=== PATIENT | female | born 2000 | race Caucasian/White ===

== ENCOUNTER 2024-08-08 08:48 | Outpatient (CLI) | payer OTHER, BC, SELFPAY ==
--- NOTE | 2024-08-08 08:48 | ANES.PREANE2 ---
Pre-Anesthetic Assessment Preop Diagnosis: IUP Epidural Familial anesthetic complications: None Social No alcohol and No tobacco Exam alert, oriented x 3, clear to auscultation bilaterally and regular rate & rhythm Airway Mallampati: Class II Dentition: full Anesthetic Plan ASA status: 2 Anesthesia: Regional (specify below) Risk of > 500 ml blood loss (7ml/kg in children): Yes, adequate IV access and fluids planned Data Anesthesia Cardiac Studies: No Data to Display
--- OUTSIDE RECORDS SUMMARY | 2024-10-14 16:06 | XMS_ITS | Data Portability ---
Author Organization TOSHIA Murdock [facility], [facility], [facility] Address [address] [facility] [address] [place] [address] Assessment No assessment recorded. Plan of Treatment Reminders Order Date Submit Date Provider Last Modified By Organization Details Last Modified Time Details Appointments None recorded. Lab streptococc us group B, culture, unspecified specimen 2024 025 [employer] [facility], [address] [place] [address], [facility] [address] [place], [address], 09:30:13 Referral None recorded. Procedures None recorded. Surgeries None recorded. Imaging None recorded. Medication Orders norethindro ne (contracept wesley) 0.35 mg tablet 2024 025 [place] [facility], [address], [place], [address], 12:54:25 Patient TargetsNo targets recorded. Patient InstructionsNo instructions recorded. Reason for Referral None Reported. Results Created Date Observation Date Name Description Value Unit Range Abnormal Flag Note LastModifiedBy Organization Detail LastModifiedTime 07/24/1907/27/2024 STREP TOCOC CUS, GROUP B CULTU RE streptococcu s, group B culture SEE NOTE STREP TOCOC CUS, GROUP B CULTU RE Micro Numbe r: [id number] Test Statu s: Final Speci men Sourc e: Vagin al/an orect al Speci men Quali ty: Adequ ate Resul t: No group B Strep tococ cus isola jerrod Note per CDC guide lines optim al recov min is achie denise by swabb ing both the lower vagin a and rectu m (thro ugh the anal sphin cter) . Not Available [facility] [address] [place], [address], 07/27/2024 09:30:13 Result Notes None recorded. Problems Name Problem SNOMED Code Status Onset Date Resolution Date Notes Provider Name and Address Organization Details Recorded Time Normal in primigrav galva 117014580469 103 Active 2023 GAURANG martell [facility] 5 15:04:43 Normal in primigrav galva 555932954397 103 Completed 2023 GAURANG martell [facility] 5 15:04:43 care status 504350914 Active 2024 GAURANG CASTILLO [facility] 5 12:34:35 Contracep tion care managemen t Active 2024 GAURANG CASTILLO [facility] 5 12:34:38 Problem Notes None recorded. Procedures Surgical History Date Name Laterality Status Provider Name and Address Organization Details Recorded Time 02/20/20 24 Date of Last Pap Smear completed [facility] 09/30/2024 12:21:59 02/20/20 24 liquid based cervical cytology screening completed [facility] 09/30/2024 12:21:18 extraction of wisdom tooth completed BALWINDER CAMACHO [facility] 01/17/2024 09:23:32 Imaging Results None recorded. Procedure Notes None recorded. Medical Equipment None Reported. Allergies No known drug allergies Medications Name Sig Start Date Stop Date Status Note LastModified by Organization Details LastModified Time ibuprofen 800 mg tablet TAKE 1 TABLET BY MOUTH THREE TIMES DAILY active Not Available Not Available No t Available nifedipine ER 30 mg tablet,extend ed release Take 1 tablet every day by oral route. active Not Available Not Available No t Available norethindrone (contraceptiv e) 0.35 mg tablet Take 1 tablet every day by oral route. 2024 active Not Available Not Available Not Avai lable Z Advanced Formula active Not Available Not [...] Details Last Updated DateTime 5 180.34 cm 37.4 kg/m2 891564. 618174 g 97 % 97 % 120 /min 20 /min 97.8 [degF] 130 mm[Hg] 76 mm[Hg] BALWINDER AGUILAR [facility] 5 15:08:14 Date Recorded Body height Body mass index (BMI) Body weight Respiratory rate Oxygen saturation Oxygen saturation in Arterial blood by Pulse oximetry Heart rate Body temperature Systolic blood pressure Diastolic blood pressure Provider Name and Address Organization Details Last Updated DateTime 5 180.34 cm 37.8 kg/m2 882215. 93 g 18 /min 98 % 98 % 120 /min 98.1 [degF] 128 mm[Hg] 68 mm[Hg] GAURANG [facility] 5 11:17:23 Date Recorded Body height Body mass index (BMI) Body weight Oxygen saturation Oxygen saturation in Arterial blood by Pulse oximetry Heart rate Respiratory rate Body temperature Systolic blood pressure Diastolic blood pressure Provider Name and Address Organization Details Last Updated DateTime 5 180.34 cm 37.8 kg/m2 456872. 63 g 98 % 98 % 108 /min 18 /min 99 [degF] 136 mm[Hg] 88 mm[Hg] [facility] 5 15:16:20 Date Recorded Body height Body mass index (BMI) Body weight Oxygen saturation Oxygen saturation in Arterial blood by Pulse oximetry Heart rate Respiratory rate Body temperature Systolic blood pressure Diastolic blood pressure Provider Name and Address Organization Details Last Updated DateTime 5 180.34 cm 38.1 kg/m2 731465. 72 g 98 % 98 % 104 /min 18 /min 99.2 [degF] 122 mm[Hg] 76 mm[Hg] GAURANG CASTILLO [facility] 5 15:32:58 Date Recorded Body height Body mass index (BMI) Body weight Respiratory rate Heart rate Oxygen saturation Oxygen saturation in Arterial blood by Pulse oximetry Body temperature Systolic blood pressure Diastolic blood pressure Provider Name and Address Organization Details Last Updated DateTime 5 180.34 cm 34.7 kg/m2 375924. 71 g 18 /min 93 /min 97 % 97 % 98.9 [degF] 110 mm[Hg] 62 mm[Hg] GAURANG CASTILLO [facility] 5 12:33:10 Social History Question Answer Notes LastModified by [employer] Details LastModified Time Tobacco Smoking Status Never Smoker BALWINDER martell [facility] 01/17/2024 09:23:11 What Is Your Level Of Alcohol Consumption? None Information not available 01/17/2024 Are You Blind Or Do You Have Difficulty Seeing? No Information not available 09/30/2024 Are You A Caregiver? No Information not available 08/14/2024 Are You Deaf Or Do You Have Serious Difficulty Hearing? No Information not available 09/30/2024 Do You Or Have You Ever Used [...] you have difficulty walking or climbing stairs? No Information not available 09/30/2024 Do you have transportation difficulties? No Information not available 08/14/2024 Are you able to walk? YESWOREST Information not available 08/14/2024 Do you have difficulty doing errands alone? No Information not available 09/30/2024 Are you able to care for yourself? Yes Information not available 01/17/2024 Do you have difficulty dressing or bathing? No Information not available 09/30/2024 Mental Status Question Answer Note LastModified by Organization D etails LastModified Time Do you have difficulty concentrating, remembering or making decisions? No Information no t available 09/30/2024 Family History Relationship Description Onset Age of this Age Resolved Age Notes LastModified by Organization Details LastModified Time Mother Essential hypertension [email or web address] Not available 01/17/2024 09:22:37 Father Diabetes mellitus [email or web address] Not available 09:22:46 Medical History No medical history recorded. Gynecological History Statement/Question Response Abnormal Pap N Date of Last Pap Smear 02/20/2024 Obstetrics History GPAL:G 1 P 1 0 0 1 Type Value Full Term 1 Living 1 Total 1 Past Encounters Encounter ID Performer Location Encounter Start Date Encounter Closed Date Diagnosis/Indication Diagnosis SNOMED-CT Code Diagnosis ICD10 Code Diagnosis Note [id number] Giancarlo Larios MD [facility] ([facility]) [address] [place] [address] 5 01/17/2024 08:58:02 01/17/2024 10:21:08 Normal in primigravida 5203701075 15215 Z34.01 Gestation period, 10 weeks 80582288 Z3A.10 Irregular periods 038743 07 N92.6 [id number] Giancarlo Larios MD [facility] ([facility]) [address] [place] [address] 01/17/2024 12:36:12 01/18/2024 13:30:15 [id number] Giancarlo Larios MD [facility] ([facility]) [address] [place] [id number] 5 02/20/2024 09:48:01 02/20/2024 11:08:54 Normal in primigravida 4261641687 21483 Vaginal discharge 626415 006 N89.8 [id number] Giancarlo Larios MD [facility] ([facility]) [address] [place] [address] 5 03/20/2024 15:24:06 03/20/2024 16:10:46 Normal in primigravida 7978213565 40475 Z34.01 Gestation period, 18 weeks 16603379 Z3A.18 [id number] Giancarlo Larios MD [facility] ([facility]) [address] [place] [address]7968-245 5 04/03/2024 13:55:20 04/04/2024 09:53:06 [id number] Giancarlo Larios MD [facility] ([facility]) [address] [place] [id number] 5 04/17/2024 14:51:20 04/17/2024 16:10:49 Normal in primigravida 2179141330 71785 Z34.01 Gestation period, 22 weeks 90390832 Z3A.22 [id number] Medhat Brown MD [facility] ([facility]) [address] [place] [address] 5 05/02/2024 10:49:04 05/02/2024 13:30:15 Cough 13477542 R05.9 stay well hydrated and restif new fever breathing trouble any pelvic sx's. [id number] Giancarlo Larios MD [facility] ([facility]) [address] [place] [address] [id number] 5 05/15/2024 09:00:05 05/15/2024 09:28:42 Normal in primigravida 4444847199 30355 Z34.02 Gestation period, 26 weeks 54747837 Z3A.26 [id number] Giancarlo Larios MD [facility] ([facility]) [address] [place] [id number] 5 06/13/2024 13:42:47 06/13/2024 16:37:51 Normal in primigravida 1343602267 41441 Z34.02 Gestation period, 30 weeks 73597139 Z3A.30 [id number] Giancarlo Larios MD [facility] ([facility]) [address] [place] [id number] 5 06/19/2024 13:53:52 06/20/2024 14:18:36 [id number] Giancarlo Larios MD [facility] ([facility]) [address] [place] [id number] 5 06/26/2024 14:55:53 06/26/2024 16:49:13 Normal in primigravida 6836153681 38599 Z34.02 Gestation period, 32 weeks 6052810 Z3A.32 [id number] Giancarlo Larios MD [facility] ([facility]) [address] [place] [address] 5 07/10/2024 14:49:35 07/10/2024 15:46:57 Normal in primigravida 0572599634 55996 Z34.02 Gestation period, 34 weeks 95427726 Z3A.34 [id number] Giancarlo Larios MD [facility] ([facility]) [address] [place] [id number] 5 07/24/2024 14:52:18 07/24/2024 16:58:25 Normal in primigravida 0832693535 13537 Z34.03 Gestation period, 36 weeks 03306243 Z3A.36 [id number] Giancarlo Larios MD [facility] ([facility]) [address] [place] [id number] 5 07/30/2024 11:02:38 07/30/2024 11:40:13 Normal in primigravida 6852801516 20142 Z34.03 Gestation period, 37 weeks 72306993 Z3A.37 [id number] Giancarlo Larios MD [facility] ([facility]) [address] [place] [address] [id number] 5 08/07/2024 14:51:46 08/07/2024 16:23:23 Normal in primigravida 9558990947 42361 Z34.03 Gestation period, 38 weeks 36133205 Z3A.38 [id number] Giancarlo Larios MD [facility] ([facility]) [address] [place] [address] 08/14/2024 14:53:30 08/14/2024 16:33:46 Normal in primigravida 1331759952 42692 Z34.03 Gestation period, 39 weeks 82310501 Z3A.39 [id number] Giancarlo Larios MD [facility] ([facility]) [address] [place] [address] 09/30/2024 11:55:19 09/30/2024 15:05:21 care status 665033471 Z39.2 Contracept ion care management 204149472 Z30.8 Health Concerns Section Related Observation LastModified by Organization Detai ls LastModified Time None Recorded Concern Status LastModified by Organization Details LastModified Time None Recorded Advance Directives Directive None Recorded Payers Encounter Date Sequence Insurance Name Policy Number Policy Arce Covered Member ID Arce Member ID Guarantor Name 07/24/2024 1 MEDICA - IFB (PPO) [id number] [facility] [id number] [facility] 07/24/2024 1 [place] [id number] Binh Salomon [id number] [facility] 07/30/2024 1 MEDICA - IFB (PPO) [id number] [facility] [id number] [facility] 07/30/2024 1 [place] [id number] Binh Salomon [id number] [facility] 08/07/2024 1 [employer] - [place] (PPO) [id number] Abner Reese [id number] [facility] 08/07/2024 1 [place] [id number] Binh Salomon [id number] [facility] 08/14/2024 1 [employer] - [place] (PPO) [id number] Abner Klein [id number] Debra Klein 08/14/2024 1 [place] [id number] Binh Latif [id number] Debra Klein 09/30/2024 1 [employer] - [place] (PPO) [id number] Abner Klein [id number] Debra Klein Notes Date Note Type Note Provider Name and Address Organization Details Recorded Time 07/24/2024 text/html ob routineRep orted bypatient.Associated Symptoms:no abdominal pain; no cramping; no contractions; normal movement; no bleeding; no vaginal discharge; no vaginal/vulvar itching or irritation; no dysuria; no frequency; no urgency; no hematuria; no fever; no nausea; no emesis; no diarrhea/loose stool; no visual changes; no breathlessness;consti pation;edema(mild hands and feet);headache;dizzin ess(occasional)Notes: heartburn, back pain,Pt denies any alcohol, drug or tobacco use. Giancarlo Larios MD [address] [place] [address], [phone], [facility] 08/27/2024 09:39:46 07/30/2024 text/html ob routineRep orted bypatient.Associated Symptoms:no abdominal pain; no cramping; no contractions; normal movement; no bleeding; no vaginal discharge; no vaginal/vulvar itching or irritation; no dysuria; no frequency; no urgency; no hematuria; no fever; no nausea; no emesis; no diarrhea/loose stool; no visual changes; no dizziness; no breathlessness;consti pation;edema(mild hands and feet);headacheNotes:b ack pain, pelvic pressurePt denies any alcohol, drug or tobacco use. Giancarlo Larios MD [address] [place] [address], [phone], [facility] 07/30/2024 11:35:20 08/07/2024 text/html ob routineRep orted bypatient.Associated Symptoms:no abdominal pain; no cramping; no contractions; normal movement; no bleeding; no vaginal/vulvar itching or irritation; no dysuria; no frequency; no urgency; no hematuria; no fever; no emesis; no constipation; no diarrhea/loose stool; no visual changes; no dizziness;vaginal discharge;nausea;patricia a(mild hands and feet);headache;breath lessnessNotes:back pain, pelvic painPt denies any alcohol, drug or tobacco use. Pt stated that for the last week she has been having itching on her hands and feet. She stated that it has been getting progressively worse and keeps her awake at night Giancarlo Larios MD [address] [place] [address], [phone], [facility], [place] 08/07/2024 15:44:45 08/14/2024 text/html jr ob routineRep orted bypatient.Associated [...] and feet, not worsening Giancarlo Larios MD [address] [place] [address], [phone], [facility] 08/14/2024 16:03:48 09/30/2024 text/html VisitReported bypatient.Onset/Timin g:date of delivery: (08/16/24) Quality: Context:no complications; feeding choice: breast; good support from partner/family; resumed sexual activity no; resumed menstrual bleeding no Associated Symptoms:no abnormal bleeding; no vaginal discharge; no pelvic pain; laceration well healed; no dysuria; no fever; no problems Contraception Plan:would like to discuss pt would like to discuss contraception Giancarlo Larios MD [address] [place] [address], [phone], [facility] 09/30/2024 12:59:24 OBGyn Episode Ob Episode Information Episode Created Date Number of Fetuses Patient Bloodtype Patient rh Status Prepregnancy Weight lbs Domestic Partner Domestic Partner Phone Father Name Vehicle Refinisher Status 01/17/20 24 1 O Positive Abner CLOSED Fetus Data First Name Last Name Admitted to NICU Weight (g) Sex Living Outcome Pediatric Complications Fetus ID Race Codes Race Delivery Type Rabia false 3883.88 15 F true Full Term none [id number] VAGINAL Problems Problem Notes Problem Name Start Date End Date Resolution Snomed Code Not e Normal in primigravida 02/19/2024 [id number] Mau Calculation Initial Mau Date Initial Exam [...] Type Weight in lbs Pre/Post Dialysis Refused 238.754356775584 BP Diastolic BP Location Tested BP Systolic [...] Type Weight in lbs Pre/Post Dialysis Refused 238.95905700246 BP Diastolic BP Location Tested BP Systolic [...] Type Weight in lbs Pre/Post Dialysis Refused 243.429106339960 BP Diastolic BP Location Tested BP Systolic [...] Type Weight in lbs Pre/Post Dialysis Refused 249.912128123281 BP Diastolic BP Location Tested BP Systolic BP Type 72 122 Fetus Heart Rate Present A 144 Present Fetus Movement A Yes Comments constipation, headache, shor tness of breath, heartburn Flowsheet Date 05/02/2024 Raya Score Blood Edema Fundus Height Fundus Units Glucose Ketones Leukocytes Nitrite Labor Signs Protein Cervic Dilation Cervic Effacement Cervic Station Type Weight in lbs Pre/Post Dialysis Refused Weight 250.611121107928 BP Diastolic BP Location Tested BP Systolic BP Type 70 115 Fetus Heart Rate Present Fetus Movement Comments Flowsheet Date 05/15/2024 Raya Score Blood Edema Fundus Height Fundus Units Glucose Ketones Leukocytes Nitrite Labor Signs Protein Cervic Dilation Cervic Effacement Cervic Station none none Negative neg Type Weight in lbs Pre/Post Dialysis Refused 253.263693732905 BP Diastolic BP Location Tested BP Systolic [...] Type Weight in lbs Pre/Post Dialysis Refused 259.068336713494 BP Diastolic BP Location Tested BP Systolic [...] Type Weight in lbs Pre/Post Dialysis Refused 263.627755016506 BP Diastolic BP Location Tested BP Systolic [...] Type Weight in lbs Pre/Post Dialysis Refused 267.605324920985 BP Diastolic BP Location Tested BP Systolic BP Type 70 L arm 126 Fetus Heart Rate Present A 148 Present Fetus Movement A Yes Comments nasuea, swelling feet/hands, low back pain, dizziness occas. Flowsheet Date 07/24/2024 Raya Score Blood Edema Fundus Height Fundus Units Glucose Ketones Leukocytes Nitrite Labor Signs Protein Cervic Dilation Cervic Effacement Cervic Station 37 cm 2+ Type Weight in lbs Pre/Post Dialysis Refused 268.91902242787 BP Diastolic BP Location Tested BP Systolic [...] Weight in lbs Pre/Post Dialysis Refused Weight 271.095404658420 BP Diastolic BP Location Tested BP Systolic [...] Weight in lbs Pre/Post Dialysis Refused Weight 271.342216524303 BP Diastolic BP Location Tested BP Systolic [...] Weight in lbs Pre/Post Dialysis Refused Weight 273.51605319018 BP Diastolic BP Location Tested BP Systolic BP Type 76 L arm 122 Fetus Heart Rate Present A 160 Present Fetus Movement A Yes Comments vaginal pressure, pelvic pre ssure, cramps, nausea, headaches, swelling hands and feet, itching hands and feet Flowsheet Date 09/30/2024 Raya Score Blood Edema Fundus Height Fundus Units Glucose Ketones Leukocytes Nitrite Labor Signs Protein Cervic Dilation Cervic Effacement Cervic Station Type Weight in lbs Pre/Post Dialysis Refused Weight 248.944321735276 BP Diastolic BP Location Tested BP Systolic BP Type 62 L arm 110 Fetus Heart Rate Present Fetus Movement Comments Menstrual History Last Menstrual Date Menses Monthly On Bcp Conception Prior Menses Frequency Hcg Plus Date Menarche Onset Age 0511/07/2023 Genetic Screening And Infection History Question Response Note Patient's Age Will Be 35 Years Or Older At Estim ated Date of Delivery false Thalassemia (Fijian, Kittitian, Mediterranean, Or Background): MCV < 80 false Neural Tube Defect (Meningomyelocele, Spina Bifi da, Or Anencephaly) false Congenital Heart Defect false Down Syndrome false Charlie-Sachs (eg, Pentecostal, Cajun, Khmer-[place]) f alse Bk Disease false Sickle Cell Disease Or Trait () false Hemophilia Or Other Blood Disorders false Muscular Dystrophy false Cystic Fibrosis false Carver's Chorea false Intellectual Disability/Autism false If Yes, [...] Post Complications Tubal Sterilization Discharge Date Comments 5 Sponta neous Regional-Ep idural 39.6 false Giancarlo Larios MD None false Discharge Information Feeding Method Contraceptive Method Maternal HG B and HCT Levels Breast
== END 2024-08-08 08:49 | disposition home or self-care (01) ==
LOC: OBGYN 10-14 19:31 → OPOB 10-15 16:40
PROVIDERS: Visit Provider Family Medicine
DX: Z01.818 Encounter for other preprocedural examination (principal)

== ENCOUNTER 2024-08-16 08:24 | Inpatient (IN) | payer OTHER, BC, SELFPAY ==
[2024-08-16] VITALS (75 sets, daily range): BP systolic 115–161; BP diastolic 60–94; PULSE 72–153; RESP 16–18; TEMP 36.7; O2SAT 97–99; BMI 38.2
[2024-08-16 05:59] LABS: Basophils # 0.1 10^3/uL (0.0-0.1); Basophils % 0.3 %; Eosinophils # 0.1 10^3/uL (0.0-0.8); Eosinophils % 0.3 %; Hematocrit 39.2 % (36-47); Lymphocytes # 1.9 10^3/uL (0.8-4.8); Lymphocytes % 11.2 %; Mean Corpuscular HGB Conc 32.1 g/dL (30-55); Mean Corpuscular Hemoglobin 26.1 pg (27-33); Mean Corpuscular Volume 81.3 fl (85-98); Mean Platelet Volume 11.3 fL (7.4-10.4); Monocytes # 0.6 10^3/uL (0.2-0.9); Monocytes % 3.7 %; Neutrophils # 13.97 10^3/uL (1.8-7.7); Nucleated Red Blood Cells % 0 %; Platelet Count 258 10^3/cmm (157-399); Red Blood Count 4.82 10^6/uL (3.85-5.65); Red Cell Distribution Width 14.3 % (12.1-15.1); White Blood Count 16.64 10^3/uL (3.29-11.43)
[2024-08-16] MEDS: fentaNYL 50 mcg/mL INJ 2mL IVP (06:44)
[2024-08-16] MEDS: lactated ringers 1,000 ML 999 ML IV (08:00)
--- NOTE | 2024-08-16 08:20 | PM.OPHPUD ---
Labor & Delivery H&P Update Date of Procedure: August 16, 2024 Date H&P Performed: 08/14/24 Changes to previous documentation: The patient is now having consistent contractions and making cervical change. Admission Diagnosis: 24-year-old 1 at 39 weeks and 6 days estimated gestational age Planned procedure: Vaginal delivery Other information: The patient is an otherwise healthy 24-year-old 1 female presenting to the hospital in active labor. She had been having contractions throughout most the night. When she arrived to the hospital she was found to be 2 cm dilated, when she was checked 2 hours later she was found to have effaced more and was having progressively more painful contractions. Her has been unremarkable. Her blood type is O+. Her antibody screen is negative. She is rubella immune. She passed her 3 glucose screen. She is GBS negative. The remainder of her infectious disease profile is within normal limits. Related Problem List Diagnoses (1) 39 weeks gestation of : A&P Assessment and plan (1) 39 weeks gestation of : I anticipate routine labor and delivery. Status: Acute PDMP PDMP Reviewed: Not Reviewed
--- NOTE | 2024-08-16 08:23 | P.ANES_ITS ---
Anesthesia Procedures Procedure/Date: 08/16/24
--- NOTE | 2024-08-16 08:23 | ANES.PROC ---
Anesthesia Procedures Procedure/Date: 08/16/24
--- OUTSIDE RECORDS SUMMARY | 2024-08-16 08:38 | XMS_ITS | Continuity of Care Document ---
Author Organization [facility] Meg, LHannah, [facility] ([facility]) Address [address] [place] [address] Assessment No assessment recorded. Plan of Treatment Reminders Order Date Submit Date Provider Last Modified By Organization Details Last Modified Time Details Appointments RETURN OB 2024 02:00P M Giancarlo Larios MD Not available Not available Not available Lab None recorded . Referral None recorded . Procedures None recorded . Surgeries None recorded . Imaging None recorded . Medication Orders None recorded . Patient TargetsNo targets recorded. Patient InstructionsNo instructions recorded. Reason for Referral None Reported. Results Created Date Observation Date Name Description Value Unit Range Abnormal Flag Note LastModifiedBy Organization Detail LastModifiedTime 04/05/20 24 04/03/2024 US, obste tric, 2nd trime ster No observ ation record ed. [email or web address] [facility] [address] [place], [address], 04/09/2024 19:50:52 Result Notes None recorded. Problems Name Problem SNOMED Code Status Onset Date Resolution Date Notes Provider Name and Address Organization Details Recorded Time Normal in primigravid a 0749699894917 03 Active 2023 [facility] Normal in primigravid a 0094117359750 03 Active 2023 [facility]43 Problem Notes None recorded. Procedures Surgical History Date Name Laterality Status Provider Name and Address Organization Details Recorded Time 02/23/20 24 Date of Last Pap Smear completed [facility] 02/26/2024 11:50:55 extraction of wisdom tooth [facility] 01/17/2024 09:23:32 Imaging Results None recorded. Procedure Notes None recorded. Medical Equipment None Reported. Allergies No known drug allergies Medications Name Sig Start Date Stop Date Status Note LastModified by Organization Details LastModified Time nifedipine ER 30 mg tablet,exten ded release Take 1 tablet every day by oral route. active Not Available Not Available No t Available Z Advanced Formula active Not Available Not Available Not Available nifedipine 01/16 completed Not Available Not Available Not Available Vitals Date Recorded Body height Body mass index (BMI) Body weight Oxygen saturation Oxygen saturation in Arterial blood by Pulse oximetry Heart rate Respiratory rate Body temperature Systolic blood pressure Diastolic blood pressure Provider Name and Address Organization Details Last Updated DateTime 180.34 cm 38.1 kg/m2 418066. 72 g 98 % 98 % 104 /min 18 /min 99.2 [degF] 122 mm[Hg] 76 mm[Hg] [facility] 15:32:58 Social History Question Answer Notes LastModified by Organizat ion Details LastModified Time Tobacco Smoking Status Never [facility] 01/17/2024 09:23:11 What Is Your Level Of Alcohol Consumption? None Information not available 01/17/2024 Are You Blind Or Do You Have Difficulty Seeing? Yes Information not available 08/14/2024 Are You A Caregiver? No Information not available 08/14/2024 Are You Deaf Or Do You Have Serious Difficulty Hearing? Yes Information not available 08/14/2024 Do You Or Have You Ever Used Any Nicotine-free Cigarettes, Vape, Or Chewing Tobacco? No Information not available 08/14/2024 What Is Your Relationship Status? Information not available 01/17/2024 Are You Sexually Active? Yes Information not available 01/17/2024 Do You Use Any Illicit Or Recreational Drugs? No Information not available 01/17/2024 Have You Recently Traveled Abroad? No Information not available 08/14/2024 Do You Or Have You Ever Used Any Other Forms Of Tobacco Or Nicotine? No Information not available 08/07/2024 Sex: Unknown Functional Status Question Answer Note LastModified by Organizat ion Details LastModified Time Do you have difficulty walking or climbing stairs? Yes Information not available 08/14/2024 Do you have transportation difficulties? No Information not available 08/14/2024 Are you able to walk? YESWOREST Information not available 08/14/2024 Do you have difficulty doing errands alone? Yes Information not available 08/14/2024 Are you able to care for yourself? Yes Information not available 01/17/2024 Do you have difficulty dressing or bathing? Yes Information not available 08/14/2024 Mental Status Question Answer Note LastModified by Organization D etails LastModified Time Do you have difficulty concentrating, remembering or making decisions? Yes Information no t available 08/14/2024 Family History Relationship Description Onset Age of this Age Resolved Age Notes LastModified by Organization Details LastModified Time Mother Essential hypertension [email or web address] Not available 01/17/2024 09:22:37 Father Diabetes mellitus [email or web address] Not available 09:22:46 Medical History No medical history recorded. Gynecological History Statement/Question Response Abnormal Pap N Date of Last Pap Smear 02/23/2024 Obstetrics History GPAL:G 1 P 0 0 0 0 Past Encounters Encounter ID Performer Location Encounter Start Date Encounter Closed Date Diagnosis/Indication Diagnosis SNOMED-CT Code Diagnosis ICD10 Code Diagnosis Note [id number] Alhaji Donovan [facility] ([facility]) [address] [place] [phone] 07/24/2024 14:52:18 07/24/2024 16:58:25 Normal in primigravida 0368664528 45821 Z34.03 Gestation period, 36 weeks 55538471 Z3A.36 [id number] Giancarlo Larios MD [facility] ([facility]) [address] [place] [phone] 07/30/2024 11:02:38 07/30/2024 11:40:13 Normal in primigravida 9030407522 93205 Z34.03 Gestation period, 37 weeks 86293348 Z3A.37 [id number] Giancarlo Larios MD [facility] ([facility]) [address] [place] [address] [phone] 08/07/2024 14:51:46 08/07/2024 16:23:23 Normal in primigravida 0248961773 71752 Z34.03 Gestation period, 38 weeks 22608345 Z3A.38 [id number] Giancarlo Larios MD [facility] ([facility]) [address] [place] [phone] 5 08/14/2024 14:53:30 08/14/2024 16:33:46 Normal in primigravida 7795029030 98819 Z34.03 Gestation period, 39 weeks 30763346 Z3A.39 Health Concerns Section Related Observation LastModified by Organization Detai ls LastModified Time None Recorded Concern Status LastModified by Organization Details LastModified Time None Recorded Payers Encounter Date Sequence Insurance Name Policy Number Policy Arce Covered Member ID Arce Member ID Guarantor Name 08/14/2024 2 [employer] - [employer] ([place]) [id number] Abner Klein [id number] Debra Klein 08/14/2024 1 [id number] [id number] Binh Latif [id number] Debra Klein Notes Date Note Type Note Provider Name and Address Organization Details Recorded Time 08/14/2024 text/html jr ob routineRep orted bypatient.Associated Symptoms:no abdominal pain; no contractions; normal movement; no bleeding; no vaginal/vulvar itching or irritation; no dysuria; no frequency; no urgency; no hematuria; no fever; no emesis; no constipation; no diarrhea/loose stool; no visual changes; no dizziness;cramping;va ginal discharge;nausea;patricia a(mild hands and feet);headache;breath lessness(occasional)N otes:back pain, pelvic pain, vaginal pressurePt denies any alcohol, drug or tobacco use. itching hands and feet, not worsening Giancarlo Larios MD [address] [place] [address], [phone], [facility] 08/14/2024 16:03:48 OBGyn Episode Ob Episode Information Episode Created Date Number of Fetuses Patient Bloodtype Patient rh Status Prepregnancy Weight lbs Domestic Partner Domestic Partner Phone Father Name Assistant Manager Trainee Status 01/17/20 24 1 O Positive Abner OPEN Fetus Data First Name Last Name Admitted to NICU Weight (g) Sex Living Outcome Pediatric Complications Fetus ID Race Codes Race Delivery Type [id number] Problems Problem Notes Problem Name Start Date End Date Resolution Snomed Code Not e Normal in primigravida 02/19/2024 [id number] Mau Calculation Initial Mau Date Initial Exam Date Initial Exam Provider Initial Ultrasound Date Last Menstrual Period Date Ultra Sound Weeks Gestation 08/17/2024 01/17/2024 01/17/2024 11/07/2023 9 Eighteen To Twenty Week Mau Update Ultra Sound Date Fundal Height At Umbil Quickening Date Ultra Sound Latest Weeks Gestation Final Mau Confirmed By Final Mau Confirmed Date Final Mau Date Ultra Sound Latest Days Gestation 0 0 Pre- Flowsheet Flowsheet Date 01/17/2024 Raya Score Blood Edema Fundus Height Fundus Units Glucose Ketones Leukocytes Nitrite Labor Signs Protein Cervic Dilation Cervic Effacement Cervic Station Type Weight in lbs Pre/Post Dialysis Refused 238.024193486126 BP Diastolic BP Location Tested BP Systolic BP Type 74 120 sitting Fetus Heart Rate Present A 168 Present Fetus Movement Comments OBI, nausea,vomiting, interm ittent cramping Flowsheet Date 01/17/2024 Raya Score Blood Edema Fundus Height Fundus Units Glucose Ketones Leukocytes Nitrite Labor Signs Protein Cervic Dilation Cervic Effacement Cervic Station Type Weight in lbs Pre/Post Dialysis Refused BP Diastolic BP Location Tested BP Systolic BP Type Fetus Heart Rate Present Fetus Movement Comments Flowsheet Date 01/19/2024 Raya Score Blood Edema Fundus Height Fundus Units Glucose Ketones Leukocytes Nitrite Labor Signs Protein Cervic Dilation Cervic Effacement Cervic Station Type Weight in lbs Pre/Post Dialysis Refused BP Diastolic BP Location Tested BP Systolic BP Type Fetus Heart Rate Present Fetus Movement Comments u/s on 01/17/24, MAU 08/18/23, E GA 9.4, FHR 167 Flowsheet Date 02/20/2024 Raya Score Blood Edema Fundus Height Fundus Units Glucose Ketones Leukocytes Nitrite Labor Signs Protein Cervic Dilation Cervic Effacement Cervic Station Type Weight in lbs Pre/Post Dialysis Refused 238.59518747100 BP Diastolic BP Location Tested BP Systolic BP Type 74 116 sitting Fetus Heart Rate Present A 152 Present Fetus Movement A No Comments NOB- headache, cough, runny nose, vaginal discharge Flowsheet Date 03/20/2024 Raya Score Blood Edema Fundus Height Fundus Units Glucose Ketones Leukocytes Nitrite Labor Signs Protein Cervic Dilation Cervic Effacement Cervic Station none trace neg Type Weight in lbs Pre/Post Dialysis Refused 243.901813135106 BP Diastolic BP Location Tested BP Systolic BP Type 70 122 Fetus Heart Rate Present A 148 Present Fetus Movement A No Comments heartburn , low back pain Flowsheet Date 04/03/2024 Raya Score Blood Edema Fundus Height Fundus Units Glucose Ketones Leukocytes Nitrite Labor Signs Protein Cervic Dilation Cervic Effacement Cervic Station Type Weight in lbs Pre/Post Dialysis Refused BP Diastolic BP Location Tested BP Systolic BP Type Fetus Heart Rate Present Fetus Movement Comments Flowsheet Date 04/09/2024 Raya Score Blood Edema Fundus Height Fundus Units Glucose Ketones Leukocytes Nitrite Labor Signs Protein Cervic Dilation Cervic Effacement Cervic Station Type Weight in lbs Pre/Post Dialysis Refused BP Diastolic BP Location Tested BP Systolic BP Type Fetus Heart Rate Present Fetus Movement Comments U/S of 04/03/24 EDC-08/13/24, EGA-21.1, FHT-145, breech presentation, placenta unremarkable, posterior, AFV-normal, negative for visible anatomic deformity, ovaries are not visible due to positional factors Flowsheet Date 04/17/2024 Raya Score Blood Edema Fundus Height Fundus Units Glucose Ketones Leukocytes Nitrite Labor Signs Protein Cervic Dilation Cervic Effacement Cervic Station 23 cm none none Negative neg Type Weight in lbs Pre/Post Dialysis Refused 249.477920320393 BP Diastolic BP Location Tested BP Systolic BP Type 72 122 Fetus Heart Rate Present A 144 Present Fetus Movement A Yes Comments constipation, headache, shor tness of breath, heartburn Flowsheet Date 05/02/2024 Raya Score Blood Edema Fundus Height Fundus Units Glucose Ketones Leukocytes Nitrite Labor Signs Protein Cervic Dilation Cervic Effacement Cervic Station Type Weight in lbs Pre/Post Dialysis Refused Weight 250.643680247776 BP Diastolic BP Location Tested BP Systolic BP Type 70 115 Fetus Heart Rate Present Fetus Movement Comments Flowsheet Date 05/15/2024 Raya Score Blood Edema Fundus Height Fundus Units Glucose Ketones Leukocytes Nitrite Labor Signs Protein Cervic Dilation Cervic Effacement Cervic Station none none Negative neg Type Weight in lbs Pre/Post Dialysis Refused 253.640190437162 BP Diastolic BP Location Tested BP Systolic BP Type 70 120 sitting Fetus Heart Rate Present A 140 Present Fetus Movement A Yes Comments glucose today, pelvic pain, nausea, headache, heartburn, sinus drainage Flowsheet Date 06/13/2024 Raya Score Blood Edema Fundus Height Fundus Units Glucose Ketones Leukocytes Nitrite Labor Signs Protein Cervic Dilation Cervic Effacement Cervic Station none none Negative neg Type Weight in lbs Pre/Post Dialysis Refused 259.988669286095 BP Diastolic BP Location Tested BP Systolic BP Type 64 118 sitting Fetus Heart Rate Present A 140 Present Fetus Movement Comments heartburn,sob Flowsheet Date 06/19/2024 Raya Score Blood Edema Fundus Height Fundus Units Glucose Ketones Leukocytes Nitrite Labor Signs Protein Cervic Dilation Cervic Effacement Cervic Station Type Weight in lbs Pre/Post Dialysis Refused BP Diastolic BP Location Tested BP Systolic BP Type Fetus Heart Rate Present Fetus Movement Comments Flowsheet Date 06/26/2024 Raya Score Blood Edema Fundus Height Fundus Units Glucose Ketones Leukocytes Nitrite Labor Signs Protein Cervic Dilation Cervic Effacement Cervic Station 34 cm none trace Negative neg Type Weight in lbs Pre/Post Dialysis Refused 263.501419873494 BP Diastolic BP Location Tested BP Systolic BP Type 74 120 sitting Fetus Heart Rate Present A 136 Present Fetus Movement A Yes Comments nausea, heartburn, dizziness , low back pain, Flowsheet Date 07/10/2024 Raya Score Blood Edema Fundus Height Fundus Units Glucose Ketones Leukocytes Nitrite Labor Signs Protein Cervic Dilation Cervic Effacement Cervic Station 35 cm none trace trace Type Weight in lbs Pre/Post Dialysis Refused 267.163121505965 BP Diastolic BP Location Tested BP Systolic BP Type 70 L arm 126 Fetus Heart Rate Present A 148 Present Fetus Movement A Yes Comments nasuea, swelling feet/hands, low back pain, dizziness occas. Flowsheet Date 07/24/2024 Raya Score Blood Edema Fundus Height Fundus Units Glucose Ketones Leukocytes Nitrite Labor Signs Protein Cervic Dilation Cervic Effacement Cervic Station 2+ Type Weight in lbs Pre/Post Dialysis Refused 268.03287846000 BP Diastolic BP Location Tested BP Systolic BP Type 76 130 sitting Fetus Heart Rate Present A 150 Present Fetus Movement A Yes Comments head cols, edema feet/hands, cough, headache, dizziness,constipation, group B today, epi consult 08/07/24 Flowsheet Date 07/30/2024 Raya Score Blood Edema Fundus Height Fundus Units Glucose Ketones Leukocytes Nitrite Labor Signs Protein Cervic Dilation Cervic Effacement Cervic Station 38.5 cm none trace trace 1cm 50% -3 Type Weight in lbs Pre/Post Dialysis Refused Weight 271.299692155565 BP Diastolic BP Location Tested BP Systolic BP Type 68 128 Fetus Heart Rate Present A 144 Present Fetus Movement A Yes Comments pelvic pressure, mild swelli ng feet/hands, headache, back pain Flowsheet Date 07/30/2024 Raya Score Blood Edema Fundus Height Fundus Units Glucose Ketones Leukocytes Nitrite Labor Signs Protein Cervic Dilation Cervic Effacement Cervic Station Type Weight in lbs Pre/Post Dialysis Refused BP Diastolic BP Location Tested BP Systolic BP Type Fetus Heart Rate Present Fetus Movement Comments Group B strep Negative. OB r ecords sent Flowsheet Date 08/07/2024 Raya Score Blood Edema Fundus Height Fundus Units Glucose Ketones Leukocytes Nitrite Labor Signs Protein Cervic Dilation Cervic Effacement Cervic Station none trace 1+ 1cm 60% -3 Type Weight in lbs Pre/Post Dialysis Refused Weight 271.132157030967 BP Diastolic BP Location Tested BP Systolic BP Type 88 R arm 136 sitting Fetus Heart Rate Present A 140 Present Fetus Movement A Yes Comments itching hands and feet, swel ling, pelvic pressure, nausea, headache Flowsheet Date 08/14/2024 Raya Score Blood Edema Fundus Height Fundus Units Glucose Ketones Leukocytes Nitrite Labor Signs Protein Cervic Dilation Cervic Effacement Cervic Station 40 cm none none 1+ 2cm 70% -3 Type Weight in lbs Pre/Post Dialysis Refused Weight 273.61042919643 BP Diastolic BP Location Tested BP Systolic BP Type 76 L arm 122 Fetus Heart Rate Present A 160 Present Fetus Movement A Yes Comments vaginal pressure, pelvic pre ssure, cramps, nausea, headaches, swelling hands and feet, itching hands and feet Menstrual History Last Menstrual Date Menses Monthly On Bcp Conception Prior Menses Frequency Hcg Plus Date Menarche Onset Age 0511/07/2023 Genetic Screening And Infection History Question Response Note Patient's Age Will Be 35 Years Or Older At Estim ated Date of Delivery false Thalassemia (Bangladeshi, Syriac, Mediterranean, Or Background): MCV < 80 false Neural Tube Defect (Meningomyelocele, Spina Bifi da, Or Anencephaly) false Congenital Heart Defect false Down Syndrome false Charlie-Sachs (eg, Tenriism, Cajun, Palestinian-[place]) f alse Bk Disease false Sickle Cell Disease Or Trait () false Hemophilia Or Other Blood Disorders false Muscular Dystrophy false Cystic Fibrosis false Kim's Chorea false Intellectual Disability/Autism false If Yes, Was Person Tested For Fragile X? false Other Inherited Genetic Or Chromosomal Disorder false Maternal Metabolic Disorder (eg, Type 1 Diabetes , PKU) false Patient Or Baby's Father Had A Child With Defects Not Listed Above false Recurrent Loss, Or A Stillbirth false Medications (including Suppl ements, Vitamins, Herbs, OTC Drugs), Illicit/Recreational Drugs, Alcohol false If Yes, Agent(s) And Strength/Dosage false Any Other Genetic History false Live With Someone With TB Or Exposed To TB false Patient Or Partner Has History Of Genital Herpes false Rash Or Viral Illness Since Last Menstrual Perio d false History Of STD, Gonorrhea, Chlamydia, HPV, Syphi lis false Other Infection History false History of HIV false History of Hepatitis false Prior GBS-infected child false Hemoglobinopathy Or Carrier false Other Structural Defect false Recent Travel History Outside of Country false Mental Retardation/Autism false Delivery Information Delivery Date Delivery Type Labor Anesthesia Weeks Gestation Incision Type Labor Labor Length Hrs Delivered By Post Complications Tubal Sterilization Discharge Date Comments Discharge Information Feeding Method Contraceptive Method Maternal HG B and HCT Levels
--- OUTSIDE RECORDS SUMMARY | 2024-08-16 08:38 | XMS_ITS | Continuity of Care Document ---
Author Organization [facility] Meg, LHannah, [facility] ([facility]) Address [address] [place] [address] Assessment No assessment recorded. Plan of Treatment [...] ster No observ ation record ed. [email or web address] [facility] [address] [place], [address], 04/09/2024 19:50:52 Result Notes None recorded. Problems Name Problem SNOMED Code Status Onset Date Resolution Date Notes Provider Name and Address Organization Details Recorded Time Normal in primigravid a 5643266415780 03 Active 2023 [facility] 15:04:43 Normal in primigravid a 7472404301124 03 Active 2023 [facility]ell [facility] 15:04:43 Problem Notes None recorded. Procedures Surgical History Date Name Laterality Status Provider Name and Address Organization Details Recorded Time 02/23/20 24 Date of Last Pap Smear completed GAURANG ANNA [facility], [place] 02/26/2024 11:50:55 extraction of wisdom tooth completed BALWINDER CAMACHO [facility], [place] 01/17/2024 09:23:32 Imaging Results None recorded. Procedure [...] and Address Organization Details Last Updated DateTime 5 180.34 cm 37.8 kg/m2 419562. 63 g 98 % 98 % 108 /min 18 /min 99 [degF] 136 mm[Hg] 88 mm[Hg] GAURANG ANNA [facility], [place] 5 15:16:20 Social History Question Answer Notes LastModified by Organizat ion Details LastModified Time Tobacco Smoking Status Never Smoker BALWINDER martell [facility], L[facility] 01/17/2024 09:23:11 What Is Your Level Of [...] SNOMED-CT Code Diagnosis ICD10 Code Diagnosis Note [id number] Giancarlo Larios MD [facility] ([facility]) [address] [place] [phone] 07/10/2024 14:49:35 07/10/2024 15:46:57 Normal in primigravida 3211613671 73191 Z34.02 Gestation period, 34 weeks 12878875 Z3A.34 [id number] Alhaji Donovan [facility] ([facility]) [address] [place] [phone] 07/24/2024 14:52:18 07/24/2024 16:58:25 Normal in primigravida 8538264007 47191 Z34.03 Gestation period, 36 weeks 76239595 Z3A.36 [id number] Giancarlo Larios MD [facility] ([facility]) [address] [place] [phone] 5 07/30/2024 11:02:38 07/30/2024 11:40:13 Normal in primigravida 0225472961 07883 Z34.03 Gestation period, 37 weeks 20883515 Z3A.37 [id number] Giancarlo Larios MD [facility] ([facility]) [address] [place] [phone] 5 08/07/2024 14:51:46 08/07/2024 16:23:23 Normal in primigravida 8977035041 50785 Z34.03 Gestation period, 38 weeks 59242722 Z3A.38 Health Concerns Section Related Observation LastModified by Organization Detai ls LastModified Time None Recorded Concern Status LastModified by Organization Details LastModified Time None Recorded Payers Encounter Date Sequence Insurance Name Policy Number Policy Arce Covered Member ID Arce Member ID Guarantor Name 08/07/2024 2 MEDICA - [place] ([place]) [id number] Abner Ernie [id number] Debra Klein 08/07/2024 1 [id number] [id number] Binhvalentina HurtadoSalomon [id number] Debra Klein Notes Date Note Type Note Provider Name and Address Organization Details Recorded Time 08/07/2024 text/html Pt stated that f or the last week she has been having itching on her hands and feet. She stated that it has been getting progressively worse and keeps her awake at night Giancarlo Larios MD [address] [place] [address], [phone], [facility]CE[facility] 08/07/2024 15:44:45 08/07/2024 text/html jr ob routineRep orted bypatient.Associated Symptoms:no abdominal pain; no cramping; no contractions; normal movement; no bleeding; no vaginal/vulvar itching or irritation; no dysuria; no frequency; no urgency; no hematuria; no fever; no emesis; no constipation; no diarrhea/loose stool; no visual changes; no dizziness;vaginal discharge;nausea;patricia a(mild hands and feet);headache;breath lessnessNotes:back pain, pelvic painPt denies any alcohol, drug or tobacco use. Giancarlo Larios MD [address] [place] [address], [phone], [facility] 08/07/2024 15:44:45 OBGyn Episode Ob Episode Information Episode Created Date Number of Fetuses Patient Bloodtype Patient rh Status Prepregnancy Weight lbs Domestic Partner Domestic Partner Phone Father Name Pharmacy Informaticist Status 01/17/20 24 1 O Positive Abner OPEN Fetus Data First Name Last Name Admitted to NICU Weight (g) Sex Living Outcome Pediatric Complications Fetus ID Race Codes Race Delivery Type [id number] Problems Problem Notes Problem Name Start Date End Date Resolution Snomed Code Not e Normal in primigravida 02/19/2024 [id number] Mau Calculation Initial Mau Date Initial Exam [...] Ultra Sound Latest Days Gestation 0 0 Pre-opal Flowsheet Flowsheet Date 01/17/2024 Raya Score Blood Edema Fundus Height Fundus Units Glucose Ketones Leukocytes Nitrite Labor Signs Protein Cervic Dilation Cervic Effacement Cervic Station Type Weight in lbs Pre/Post Dialysis Refused 238.040476207770 BP Diastolic BP Location Tested BP Systolic [...] Type Weight in lbs Pre/Post Dialysis Refused 238.68282468701 BP Diastolic BP Location Tested BP Systolic [...] Type Weight in lbs Pre/Post Dialysis Refused 243.944846092290 BP Diastolic BP Location Tested BP Systolic [...] Type Weight in lbs Pre/Post Dialysis Refused 249.386985686493 BP Diastolic BP Location Tested BP Systolic BP Type 72 122 Fetus Heart Rate Present A 144 Present Fetus Movement A Yes Comments constipation, headache, shor tness of breath, heartburn Flowsheet Date 05/02/2024 Raya Score Blood Edema Fundus Height Fundus Units Glucose Ketones Leukocytes Nitrite Labor Signs Protein Cervic Dilation Cervic Effacement Cervic Station Type Weight in lbs Pre/Post Dialysis Refused Weight 250.495197428352 BP Diastolic BP Location Tested BP Systolic BP Type 70 115 Fetus Heart Rate Present Fetus Movement Comments Flowsheet Date 05/15/2024 Raya Score Blood Edema Fundus Height Fundus Units Glucose Ketones Leukocytes Nitrite Labor Signs Protein Cervic Dilation Cervic Effacement Cervic Station none none Negative neg Type Weight in lbs Pre/Post Dialysis Refused 253.579366066287 BP Diastolic BP Location Tested BP Systolic [...] Type Weight in lbs Pre/Post Dialysis Refused 259.473205296655 BP Diastolic BP Location Tested BP Systolic [...] Type Weight in lbs Pre/Post Dialysis Refused 263.105031999591 BP Diastolic BP Location Tested BP Systolic [...] Type Weight in lbs Pre/Post Dialysis Refused 267.229713161442 BP Diastolic BP Location Tested BP Systolic [...] Type Weight in lbs Pre/Post Dialysis Refused 268.19392573543 BP Diastolic BP Location Tested BP Systolic [...] Weight in lbs Pre/Post Dialysis Refused Weight 271.736990698023 BP Diastolic BP Location Tested BP Systolic [...] Weight in lbs Pre/Post Dialysis Refused Weight 271.694234418542 BP Diastolic BP Location Tested BP Systolic [...] Weight in lbs Pre/Post Dialysis Refused Weight 273.56435029095 BP Diastolic BP Location Tested BP Systolic [...] Estim ated Date of Delivery false Thalassemia (Occitan, Turkish, Mediterranean, Or Background): MCV < 80 false Neural Tube Defect (Meningomyelocele, Spina Bifi da, Or Anencephaly) false Congenital Heart Defect false Down Syndrome false Charlie-Sachs (eg, Orthodoxy, Cajun, Lithuanian-Napa) f alse Bk Disease false Sickle Cell Disease Or Trait () false Hemophilia Or Other Blood Disorders false Muscular Dystrophy false Cystic Fibrosis false [place]'s Chorea false Intellectual Disability/Autism false If Yes, [...]
[2024-08-16] MEDS: dextrose 5%-lactated ringers 1,000 ML 125 ML IV (08:40)
--- NOTE | 2024-08-16 09:07 | P.ANESUD_ITS ---
Pre-Anesthetic Update Pre-Anesthetic Assessment: Date of Surgery/Procedure: 08/16/24 Preop Tara gnosis: Labor pain Proposed Procedure: JAIME Any changes to Pre-Anesthetic Assessment?: Yes Labs Last 48hrs: Short CBC 08/16/24 Range/Units 05:50 WBC 16.64 H (3.29-11.43) 10^ 3/uL Hgb 12.60 (11.27-16.99) g/ dL Hct 39.2 (36-47) % MCV 81.3 L (85-98) fl Plt Count 258 (157-399) 10^3/c mm Neut % (Auto) 84.0 % Neut # (Auto) 13.97 H (1.8-7.7) 10^3/u L Blood Bank 08/16/24 05:50 Blood Type O Positive Rho(D) Type Rh positive Antibody Screen Negative Vitals: Pulse Rate 130 H 08/16/24 09:04 Pulse Rhythm Regular 08/16/24 05:48 Pulse Strength 3+ Normal 08/16/24 05:48 Respiratory Rate 16 08/16/24 06:44 Respiratory Effort Spontaneous, Non- Labored 08/16/24 06:44 Respiratory Depth Normal 08/16/24 06:44 Respiratory Patter n Normal 08/16/24 05:48 Blood Pressure 161/71 08/16/24 09:04 Pulse Oximetry 98 08/16/24 08:56 Oxygen Delivery Me thod Room Air 08/16/24 05:48 Exam: Pre-Anes Outpt Exam: alert, oriented x 3, clear to auscultation bilaterally and regular rate & rhythm Cardiac Studies: No Data to Display
--- NOTE | 2024-08-16 09:08 | ANES.PROC ---
Anesthesia Procedures Procedure/Date: 08/16/24 Epidural: Time Out Performed: Yes Consents Signed: Procedure Consent Consent: requested by attending/covering physician, from patient, risks and benefits reviewed and patient agrees to proceed Lumbar Level: L2-L3 Epidural position: sitting Epidural procedure: sterile prep of area, 1% lidocaine to numb the area, 18 g needle, negative for paresthesia passed, test dose given, 1.5% xylocaine 1:200k epi (5mL), 0.2% Ropivacaine bolus ml (5mL .2% Ropivacaine with 100mcg fentanyl), placed PCEA, no systemic response, sterile dressing applied and 0.2% Ropiavacaine @ mls/hr (15) Additional Comments: PT tolerated procedure well. MARYLOU at 9 cm. Catheter placed 3 cm in space
[2024-08-16] MEDS: ROPivacaine syringe 100 MG/50 ML SYRINGE 13 MG EPIDURAL ×2 (09:16→13:32)
[2024-08-16] MEDS: oxytocin 30 UNIT/500 ML BAG IV (10:48)
[2024-08-16] MEDS: ondansetron 2 mg/ML SDV 2 mL 4 MG IVP (16:15)
--- NOTE | 2024-08-16 16:57 | P.PCNOB_ITS ---
Delivery Note: Date of delivery: August 16, 2024 Pre-delivery diagnoses: 24-year-old 1 at 39 weeks estima jerrod gestational age in active labor Post-delivery diagnoses: Status post spontaneous vaginal delivery Procedure: Spontaneous vaginal delivery Delivering Physician: Giancarlo Larios Estimated blood loss (mL): 100 Pre-Delivery Course: The patient presented to the hospital in active labor. An epidural was placed. An amniotomy was performed. Pitocin was added. She progressed complete without difficulty. Delivery: DELIVERY: The patient progressed to complete without difficulty. She delivered a female with a weight of 8 pounds 9 ounces with Apgars of 8, 9. The baby was delivered from the CHEN position. The baby's mouth and nose were suctioned at the site of the perineum. The baby was then completely delivered and placed on the mother's abdomen. The cord was then clamped and cut. There was no nuchal cord. There was no meconium. The placenta and 3 vessel cord were delivered intact shortly thereafter. The perineum and vaginal vault were carefully examined. A second-degree posterior midline laceration was noted. It was repai red with 3-0 Vicryl in usual fashion.. Both the mother and the baby were in stable condition. Post-Delivery Status: Good A&P Assessment and plan (1) 39 weeks gestation of : (2) Spontaneous vaginal delivery: I anticipate routine care PDMP PDMP Reviewed: Not Reviewed Coding Level of Care Code Acute Code for Chg Fwd Diagnoses 39 weeks gestation of Z3A.39 Spontaneous vaginal delivery O80
[2024-08-16 20:29] LABS: Basophils % 0.2 %; Eosinophils % 0.1 %; Hematocrit 35.4 % (36-47); Lymphocytes # 1.4 10^3/uL (0.8-4.8); Mean Corpuscular HGB Conc 32.5 g/dL (30-55); Mean Corpuscular Hemoglobin 26.2 pg (27-33); Mean Corpuscular Volume 80.6 fl (85-98); Mean Platelet Volume 10.7 fL (7.4-10.4); Monocytes # 0.7 10^3/uL (0.2-0.9); Monocytes % 3.5 %; Neutrophils # 17.64 10^3/uL (1.8-7.7); Neutrophils % 88.7 %; Nucleated Red Blood Cells % 0 %; Platelet Count 216 10^3/cmm (157-399); Red Blood Count 4.39 10^6/uL (3.85-5.65); Red Cell Distribution Width 14.6 % (12.1-15.1); White Blood Count 19.85 10^3/uL (3.29-11.43)
[2024-08-16] MEDS: ibuprofen 800 mg tablet PO (23:55)
[2024-08-17] MEDS: HYDROcodone-acetaminophen 5-325 mg Tablet PO (02:06)
[2024-08-17 02:45] VITALS: BP 127/76; PULSE 87; RESP 18
[2024-08-17 05:07] LABS: Hematocrit 32.8 % (36-47); Mean Corpuscular HGB Conc 31.7 g/dL (30-55); Mean Corpuscular Hemoglobin 25.9 pg (27-33); Mean Corpuscular Volume 81.8 fl (85-98); Mean Platelet Volume 11.4 fL (7.4-10.4); Platelet Count 201 10^3/cmm (157-399); Red Blood Count 4.01 10^6/uL (3.85-5.65); Red Cell Distribution Width 14.6 % (12.1-15.1); White Blood Count 15.89 10^3/uL (3.29-11.43)
--- NOTE | 2024-08-17 08:24 | ANE.PACU2 ---
Inpatient post-anesthesia follow up: Airway intact: Yes Vital signs: Temperature 98.2 F Pulse Rate 99 Respiratory Rate 18 Blood Pressure 154/75 Pulse Oximetry 97 Oxygen Delivery Me thod Room Air Oxygen Flow Rate Fraction of Inspir ed Oxygen Hydration adequate: Yes Nausea and vomiting: No Pain level: 1 Mental status: Baseline Epidural Start/End: Epidural Start Date: 08/16/24 Epidural Start Time: 08:36 Epidural End Date: 08/16/24 Epidural End Time: 18:43
--- NOTE | 2024-08-17 09:44 | PM.OBGYDC ---
Discharge Providers CONTROL SPECIALIST Date of Admission: 08/16/24 08:24 Date of Discharge: 08/17/24 Attending Provider at Admission: Giancarlo Larios MD Attending Provider at Discharge: Giancarlo Larios MD Diagnoses at Discharge Discharge Diagnosis (1) 39 weeks gestation of : Status: Acute (2) Spontaneous vaginal delivery: Status: Acute Reason for Visit Reason for Visit: CTX Hospital Course Hospital Course The patient arrived to the hospital in active labor. An epidural was placed. An amniotomy was performed. Pitocin was used to augment labor. She progressed to complete and had an unremarkable delivery of a healthy appearing female infant. She is second-degree tear that was repaired in usual fashion. Her course has been unremarkable. She has breast-fed. Her bleeding has been within normal limits. Her pain has been well-controlled. She did have a brief episode after delivery of her baby when her heart rate To the 140s. She typically runs a little tachycardic normally. Appear to be sinus rhythm. As such no further workup was done beside the CBC to make sure that her blood counts were within normal limits. We rechecked her heart rate over several hours and it improved and returned to her baseline which is the 90s to low 100s. Information Peripartum Data: Infant Delivery Method: Vaginal Physical Exam Narrative: The patient is alert. She appears comfortable. Her heart has a regular rate and rhythm with no murmurs appreciated. Lungs are clear to auscultation bilaterally. Her fundus is firm and below the umbilicus. Urinary Catheter Management: Diaz Latex: Cath Placed During This Visit: yes, but has since been removed by the nurse Reason for Continuing Indwelling Catheter: Decision to DC Catheter Urinary Catheter Date of Insertion: 08/16/24 Urinary Catheter Time of Insertion: 09:56 Date Urinary Catheter Removed: 08/16/24 Time Urinary Catheter Discontinued: 16:24 Discharge Data Studies Completed and Pending Laboratory Results WBC 15.89 10^3/uL (3.29-11.43) H 08/17/24 04:47 RBC 4.01 10^6/uL (3.85-5.65) 08/17/24 04:47 Hgb 10.40 g/dL (11.27-16.99) L 08/17/24 04:47 Hct 32.8 % (36-47) L 08/17/24 04:47 MCV 81.8 fl (85-98) L 08/17/24 04:47 MCH 25.9 pg (27-33) L 08/17/24 04:47 MCHC 31.7 g/dL (30-55) 08/17/24 04:47 RDW 14.6 % (12.1-15.1) 08/17/24 04:47 Plt Count 201 10^3/cmm (157-399) 08/17/24 04:47 MPV 11.4 fL (7.4-10.4) H 08/17/24 04:47 Neut % (Auto) 88.7 % 08/16/24 20:20 Lymph % (Auto) 7.0 % 08/16/24 20:20 Winkler % (Auto) 3.5 % 08/16/24 20:20 Eos % (Auto) 0.1 % 08/16/24 20:20 Baso % (Auto) 0.2 % 08/16/24 20:20 Neut # (Auto) 17.64 10^3/uL (1.8-7.7) H 08/16/24 20:20 Lymph # (Auto) 1.4 10^3/uL (0.8-4.8) 08/16/24 20:20 Winkler # (Auto) 0.7 10^3/uL (0.2-0.9) 08/16/24 20:20 Eos # (Auto) 0.0 10^3/uL (0.0-0.8) 08/16/24 20:20 Baso # (Auto) 0.0 10^3/uL (0.0-0.1) 08/16/24 20:20 Nucleated RBC % (auto) 0 % 08/16/24 20:20 Nucleated RBCs # 0.0 /100WBC 08/16/24 20:20 Blood Type O Positive 08/16/24 05:50 Rho(D) Type Rh positive 08/16/24 05:50 Antibody Screen Negative 08/16/24 05:50 Vitals Last Vital Signs Temp 98.1 F 08/16/24 18:36 Pulse 87 08/17/24 02:45 Resp 18 08/17/24 02:45 BP 127/76 08/17/24 02:45 Pulse Ox 98 08/16/24 08:56 O2 Del Method Room Air 08/16/24 05:48 Results Labs OB ([facility]): Blood Type O Positive 08/16/24 Antibody Screen Negative 08/16/24 Hct 32.8 % (36-47) L 08/17/24 Hgb 10.40 g/dL (11.27-16.99) L 08/17/24 Rho(D) Type Rh positive 08/16/24 Plt Count 201 10^3/cmm (157-399) 08/17/24 Discharge Plan Discharge Patient Disposition: Home Condition: Stable Prescriptions: New ibuprofen 800 mg Tablet 800 mg PO TID Qty: 45 0RF Continued [id number] 1 mg Tablet 1 tab PO 1XD Discontinued nifedipine 30 mg Tablet Extended Release 30 mg PO DAILY Discharge Orders: Discharge Order (Routine); Ordered 08/17/24 Ordered By: Giancarlo Larios Referrals: Giancarlo Larios MD [Physician] - 6 Weeks Discharge Diet: Usual diet Discharge Activity: Limit activity as instructed Patient Instructions: Opioid Safety Discharge Attestations CONTROL SPECIALIST Time Spent in Discharge Care*: less than 30 min Coding Level of Care Code Acute Code for Chg Fwd Diagnoses 39 weeks gestation of Z3A.39 Spontaneous vaginal delivery O80
[2024-08-17] MEDS: docusate sodium 100 mg Capsule PO ×2 (11:17→18:38)
[2024-08-17] MEDS: PRENATAL VIT NO.130/IRON/FOLIC 1 EACH TABLET PO (11:17)
[2024-08-17] MEDS: ibuprofen 800 mg tablet PO ×2 (11:17→18:39)
[2024-08-17 11:34] VITALS: BP 135/74; PULSE 98; RESP 17; TEMP 36.6; TEMP 36.7; O2SAT 98
[2024-08-17 19:05] VITALS: BP 154/75; PULSE 99; RESP 17; RESP 18; TEMP 36.8; O2SAT 97
== END 2024-08-17 19:07 | disposition home or self-care (01) | DRG 807 ==
PROVIDERS: Admitting Provider Family Medicine; Visit Provider Family Medicine
DX: O70.1 Second degree perineal laceration during delivery (principal); Z37.0 Single live birth; O99.893 Other specified diseases and conditions complicating puerperium; R00.0 Tachycardia, unspecified; Z3A.39 39 weeks gestation of pregnancy
CPT/HCPCS: 36415; 51702; 59025; 59409; 85025; 85027; 86850; 86900; 96374; 99211; J2405; J2590; J2795; J3010; J7120; J7121; J9999